=== PATIENT | female | born 1995 | race Caucasian/White ===

== ENCOUNTER 2022-08-29 06:00 | Inpatient (IN) | payer OTHER ==
[2022-08-29 07:29] VITALS: BMI 27.3
[2022-08-29] MEDS ORDERED: Misoprostol 200 MCG TAB PR PRN (07:39)
[2022-08-29] MEDS ORDERED: Zolpidem Tartrate 5 MG TAB PO PRN (07:39)
[2022-08-29] MEDS ORDERED: HYDROcodone/Acetaminophen 5/325 mg Tablet PO PRN ×2 (07:39→20:09)
[2022-08-29] MEDS ORDERED: Lidocaine 1% (PF) 30 ML VIAL SC PRN (07:39)
[2022-08-29] MEDS ORDERED: Docusate 100 MG CAP PO PRN (07:39)
[2022-08-29] MEDS ORDERED: Acetaminophen 500 MG TAB PO PRN (07:39)
[2022-08-29] MEDS ORDERED: Ibuprofen 800 MG TAB PO PRN (07:39)
[2022-08-29] MEDS ORDERED: Diphenoxylate HCl/Atropine Tablet PO PRN ×2 (07:39)
[2022-08-29] MEDS ORDERED: hydrALAZINE 20 MG/ML VIAL SLOW IVP PRN ×2 (07:39→20:09)
[2022-08-29] MEDS ORDERED: Butorphanol Tartrate 1 MG/ML VIAL SLOW IVP PRN (07:39)
[2022-08-29] MEDS ORDERED: Promethazine HCl 25 MG/ML VIAL IM PRN ×3 (07:39→20:09)
[2022-08-29] MEDS ORDERED: Ondansetron PF 4 MG/2 ML Vial IVP PRN ×3 (07:39→20:09)
[2022-08-29] MEDS ORDERED: Carboprost 250 MCG/ML AMP IM PRN (07:39)
[2022-08-29] MEDS ORDERED: Methylergonovine 0.2 MG/ML VIAL IM PRN ×2 (07:39→20:09)
[2022-08-29] MEDS ORDERED: Lactated Ringer's 1,000 ML IV SCH (07:45)
[2022-08-29] MEDS ORDERED: NS w/ Oxytocin 30 units 500 ML IV SCH ×3 (07:45→20:09)
[2022-08-29] MEDS: Misoprostol 100 MCG TAB VAG SCH ×2 (08:00→21:13)
[2022-08-29] MEDS ORDERED: Bupivacaine 0.25% HCL 30 ML VIAL ONE (08:00)
[2022-08-29 08:57] LABS: Hemoglobin 10.2 g/dL (12.0-15.5); Mean Corpuscular HGB CONC 33.3 g/dL (32.0-36.0); Mean Corpuscular Hemoglobin 30.6 pg (27.0-33.0); Mean Corpuscular Volume 91.9 fl (81.6-98.3); Mean Platelet Volume 10.4 fl (7.4-10.4); Platelet Count 162 10x3/uL (150-450); RBC Distribution Width 13.2 % (11.5-14.5); Red Blood Cell (RBC) Count 3.33 10x6/uL (3.90-5.03); White Blood Cell (WBC) Count 7.4 10x3/uL (3.5-10.5)
[2022-08-29 09:35] LABS: HBSAg Index 0.22 S/CO (0-0.99); Hep B Surf Ag Non-Reactive S/CO (NonReactive)
[2022-08-29 09:36] LABS: Syphilis Antibody Nonreactive (Nonreactive); Syphilis Antibody Index 0.05 S/CO (<1.00 Non-Reactive)
[2022-08-29 09:43] LABS: SARS-CoV-2 NAA Rapid Test Not Detected (NotDetected)
[2022-08-29] MEDS ORDERED: Fentanyl 2 mcg/Bup 0.1% Cadd 100 ML ONE (15:21)
[2022-08-29] MEDS ORDERED: diphenhydrAMINE 50 MG/ML VIAL IVP PRN (19:59)
[2022-08-29] MEDS ORDERED: Lactated Ringer's 500 ML IV PRN (19:59)
[2022-08-29] MEDS ORDERED: Acetaminophen 325 MG TAB PO PRN (19:59)
[2022-08-29] MEDS ORDERED: Naloxone HCl 0.4 mg/ml Vial IVP PRN ×2 (19:59)
[2022-08-29] MEDS ORDERED: Moisturizing Cream (Eucerin) 113 GM JAR TOP PRN (19:59)
[2022-08-29] MEDS ORDERED: ePHEDrine Sulfate 50 MG/10 ML VIAL SLOW IVP PRN (19:59)
[2022-08-29] MEDS ORDERED: Communication Order-Pharmacy FS SCH (20:00)
[2022-08-29] MEDS ORDERED: Fentanyl 2 mcg/Bupivacaine 0.1% Cassette 100 ML EPIDURAL SCH (20:00)
[2022-08-29] MEDS ORDERED: Bisacodyl 10 MG SUPP PR PRN (20:09)
[2022-08-29] MEDS ORDERED: Varicella virus, LIVE 0.5 ML VIAL SC ONE (20:09)
[2022-08-29] MEDS ORDERED: Measles/Mumps/Rubella 10 MCG/0.5 ML VIAL SC ONE (20:09)
[2022-08-29] MEDS ORDERED: Benzocaine-Menthol 82.5 ML CAN TOP PRN (20:09)
[2022-08-29] MEDS ORDERED: Boostrix 0.5 ML (Tdap) VIAL (>/=7 yrs of age) IM ONE (20:09)
[2022-08-29] MEDS ORDERED: diphenhydrAMINE 25 MG CAP PO PRN (20:09)
[2022-08-29] MEDS ORDERED: Preparation H Ointment 28 GM TUBE PR PRN (20:09)
[2022-08-29] MEDS ORDERED: Lanolin Ointment 7 GM TUBE TOP PRN (20:09)
[2022-08-29] MEDS ORDERED: Milk Of Magnesia 30 ML UDCUP PO PRN (20:09)
[2022-08-29] MEDS ORDERED: Misoprostol 200 MCG TAB VAG PRN (20:09)
[2022-08-29] MEDS: Ibuprofen 800 MG TAB PO SCH (21:22)
[2022-08-29] MEDS: Docusate 100 MG CAP PO SCH (21:22)
[2022-08-30 03:55] LABS: Hemoglobin 9.7 g/dL (12.0-15.5); Mean Corpuscular HGB CONC 33.9 g/dL (32.0-36.0); Mean Corpuscular Volume 91.4 fl (81.6-98.3); Mean Platelet Volume 9.9 fl (7.4-10.4); Platelet Count 163 10x3/uL (150-450); RBC Distribution Width 13.2 % (11.5-14.5); Red Blood Cell (RBC) Count 3.13 10x6/uL (3.90-5.03); White Blood Cell (WBC) Count 11.9 10x3/uL (3.5-10.5)
[2022-08-30] MEDS: Ibuprofen 800 MG TAB PO SCH ×2 (05:53→13:54)
[2022-08-30] MEDS: Ferrous Sulfate 325 MG TAB PO SCH ×2 (07:56→18:17)
[2022-08-30] MEDS: Docusate 100 MG CAP PO SCH (07:56)
[2022-08-30] MEDS ORDERED: Prenatal Vitamin 1 TAB PO SCH (09:00)
[2022-08-30 20:20] VITALS: BP 139/75; TEMP 97.9
== END 2022-08-30 22:05 | disposition home or self-care (01) | DRG 807 ==
LOC: CSHLD 06:29 → CSHPP 20:31
PROVIDERS: ADMIT Obstetrics & Gynecology; ATTEND Obstetrics & Gynecology
PROC: 10E0XZZ Delivery of Products of Conception, External Approach (ICD-10-PCS; principal; 2022-08-29)
DX: O70.0 First degree perineal laceration during delivery (principal); Z37.0 Single live birth; Z20.822 Contact with and (suspected) exposure to COVID-19; Z3A.39 39 weeks gestation of pregnancy
CPT/HCPCS: 36415; 51702; 85027; 86780; 86850; 86900; 86901; 87340; J2590; S0020; U0002